=== PATIENT | female | born 1970 | race African-American/Black ===

== ENCOUNTER 2022-08-11 04:25 | Day surgery (SDC) | payer OTHER ==
[2022-08-08 14:26] VITALS: BMI 29.5
[2022-08-11 13:27] VITALS: BP 105/73; PULSE 69; RESP 19; TEMP 98.2
== END 2022-08-11 14:16 | disposition home or self-care (01) ==
LOC: JASU-ENDO 04:25
PROVIDERS: ATTEND Internal Medicine Gastroenterology
PROC: 0DJD8ZZ Inspection of Lower Intestinal Tract, Via Natural or Artificial Opening Endoscopic (ICD-10-PCS; principal; 2022-08-11 11:45)
DX: Z12.11 Encounter for screening for malignant neoplasm of colon (principal)
CPT/HCPCS: 81025